=== PATIENT | male | born 1985 | race Caucasian/White ===

== ENCOUNTER → 2016-08-07 | Outpatient (CLI) | payer OTHER ==
--- NOTE | 2016-08-22 16:02 | NUR ---
LATE ENTRY FOR 08/07/2016 EVALUATION: Client started paperwork, then counselor was informed that client had left the building unknown time. Client did call back at a later date and is scheduled to come in and do his eval on 09/04
== END | disposition home or self-care (01) ==
LOC: ADTC.GI 14:00
DX: Z53.9 Procedure and treatment not carried out, unspecified reason (principal)

== ENCOUNTER → 2016-09-04 | Outpatient (CLI) | payer SELFPAY ==
--- NOTE | 2016-09-04 21:00 | NUR ---
EVALUATION 2 HR: Client referred for this evaluation by Estrella Patel [facility] Probation. Client said his probation started June. Contact attempted with PO for imput for recommendations.
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
== END | disposition home or self-care (01) ==
LOC: ADTC.GI 08:11
DX: F15.20 Other stimulant dependence, uncomplicated (principal)